=== PATIENT | female | born 1960 | race Caucasian/White ===

== ENCOUNTER 2017-03-04 18:16 | Emergency (ER) | payer MEDICAID ==
[~2017-03-04] VITALS: Ht 152.4 cm; Wt 78.4 kg
[~2017-03-04 18:16] MED LIST: BACTDS PO; CYCL-319 PO; DOCU-144 PO; HYDR-3720 PO
[2017-03-04 18:24] VITALS: Ht 152.4 cm; Wt 78.4 kg
--- NOTE | 2017-03-04 19:54 | ERD ---
ER Documentation Chief Complaint Chief Complaint Right knee pain s/p 3 feet, no KO, headache HPI 56-year-old female presents to emergency department for complaints of bilateral knee pain after falling 3 feet high landing on bilateral knee. Patient's pain on the right knee is more than the left knee. Patient describes pain as throbbing pain, 8/10 scale, as was upon movement accompanied with swelling and bruising. Patient did not take any medications to help with symptoms. Patient started to have a headache after wards. Patient denies any head injury. Patient denies any numbness or tingling. Patient denies any deformity. ROS All systems reviewed and are negative except as per history of present illness. Medications Home Meds Active Scripts Sulfamethoxazole-Trimethoprim* (Bactrim* DS) 800-160 Mg Tab, 1 TAB PO BID for 5 Days, TAB Prov:ANDREW SLOAN DO 06/02/15 Cyclobenzaprine Hcl* (Cyclobenzaprine Hcl*) 10 Mg Tablet, 10 MG PO TID, #10 TAB Prov:HOLLY LUO 03/21/15 Docusate Sodium* (Colace*) 100 Mg Capsule, 100 MG PO BID, #20 CAP Prov:PUJATRACY HARRISONTHIA 03/21/15 Hydrocodone Bit-Acetaminophen* ([place]*) 7.5-325 Tablet, 1 TAB PO Q4H Y for PAIN , #20 TAB Prov:TRACY LUOTHIA 03/21/15 Allergies Allergies: Coded Allergies: No Known Allergy (Unverified , 03/28/15) PMhx/Soc History of Surgery: Yes (HERNIA REPAIR) Anesthesia Reaction: No Hx Neurological Disorder: No Hx Respiratory Disorders: Yes (ASTHMA) Hx Cardiac Disorders: No Hx Psychiatric Problems: No Hx Miscellaneous Medical Probl: No Hx Alcohol Use: Yes (OOC) Hx Substance Use: No Hx Tobacco Use: Yes (>20 YRS AGO) Smoking Status: Former smoker FmHx Family History: No coronary disease, No diabetes, No other Physical Exam Vitals Vital Signs Date Time Temp Pulse Resp B/P Pulse Ox O2 Delivery O2 Flow Rate FiO2 03/04/17 18:24 98.3 94 20 154/84 97 Physical Exam GENERAL: The patient is well developed and appropriate for usual state of health, in no apparent distress. CHEST: Clear to auscultation bilaterally. There are no rales, wheezes or rhonchi. HEART: Regular rate and rhythm. No murmurs, clicks, rubs or gallops. No S3 or S4. ABDOMEN: Soft, nontender and nondistended. Good bowel sounds. No rebound or guarding. No gross peritonitis. No gross organomegaly or masses. No Boo sign or McBurney point tenderness. BACK: No midline or flank tenderness. EXTREMITIES: Bilateral knee noted to be swollen with ecchymosis noted, able to do full range of motion and ambulate without any restriction. Equal pulses bilaterally. There is no peripheral clubbing, cyanosis or edema. No focal swelling or erythema. Full range of motion. Grossly neurovascularly intact. NEURO: Alert and oriented. Cranial nerves 2-12 intact. Motor strength in all 4 extremities with 5/5 strength. Sensation grossly intact. Normal speech and gait. SKIN: There is no apparent rash or petechia. The skin is warm and dry. HEMATOLOGIC AND LYMPHATIC: There is no evidence of excessive bruising or lymphedema. No gross cervical, axillary, or inguinal lymphadenopathy. Results 24 hrs PROCEDURE: XR Knee. CLINICAL INDICATION: Right knee pain TECHNIQUE: 4 views of the bilateral knees are available for review. COMPARISON: None available FINDINGS: Mild narrowing of the medial compartment of the bilateral knee is seen. Minimal narrowing of the lateral compartment of the bilateral knee is seen. There is mild narrowing of the bilateral patellofemoral joints as well. Findings are consistent with osteoarthritic degenerative changes of the bilateral knees. No acute fracture or dislocation is seen. No radiopaque foreign body is identified. Alignment remains anatomic. IMPRESSION: 1. Tricompartmental mild osteoarthritic degenerative changes of the bilateral knees. 2. No acute fracture or dislocation is seen. RPTAT: HH .Wolf Childers MD, MD Date Time Electronically viewed and signed by .Wolf Childers MD, MD on 03/04/2017 21: 19 .N/ CC: EMERITA STYLES [employer] Procedures/MDM Medical Decision Making: Patient's pain is most likely consistent with a contusion or a sprain. There is no suspicion for neurovascular compromise. Patient has intact sensation and circulation of the affected extremity. There is low suspicion for septic arthritis. Patient does not have any fever. Radiology exams of the affected area does not show any fracture or dislocation. Disposition: Home. Patient is given prescription for ibuprofen for pain, tramadol for severe pain. Patient was advised to elevate the affected area and apply ice on affected area. Patient was advised that if symptoms are worse, numbness, tingling, high fever, unable to move joint, worsening symptoms, to return to emergency department immediately. Otherwise, patient is advised to follow up with the primary care doctor in 5-7 days for reevaluation of symptoms. Disclaimer: Inadvertent spelling and grammatical errors are likely due to EHR/ dictation software use and do not reflect on the overall quality of patient care. Also, please note that the electronic time recorded on this note does not necessarily reflect the actual time of the patient encounter. Departure Diagnosis: Primary Impression: Knee contusion Encounter type: initial encounter Laterality: unspecified laterality Qualified Code: S80.00XA - Contusion of knee, unspecified laterality, initial encounter Condition: Stable Patient Instructions: Knee Pain, Uncertain Cause Additional Instructions: Patient is given prescription for ibuprofen for pain. Patient was advised to elevate the affected area and apply ice on affected area. Patient was advised that if symptoms are worse, numbness, tingling, high fever, unable to move joint , worsening symptoms, to return to emergency department immediately. Otherwise, patient is advised to follow up with the primary care doctor in 5-7 days for reevaluation of symptoms. EMERITA STYLES NP Mar 04, 2017 19:54
--- NOTE | 2017-03-04 21:19 | RADRPT ---
PROCEDURE: XR Knee. CLINICAL INDICATION: Right knee pain TECHNIQUE: 4 views of the bilateral knees are available for review. COMPARISON: None available FINDINGS: Mild narrowing of the medial compartment of the bilateral knee is seen. Minimal narrowing of the la teral compartment of the bilateral knee is seen. There is mild narrowing of the bilateral patellofe moral joints as well. Findings are consistent with osteoarthritic degenerative changes of the bilate ral knees. No acute fracture or dislocation is seen. No radiopaque foreign body is identified. Al ignment remains anatomic. IMPRESSION: 1. Tricompartmental mild osteoarthritic degenerative changes of the bilateral knees. 2. No acute fracture or dislocation is seen. RPTAT: HH .Wolf Childers MD, Date Time Electronically viewed and signed by .Wolf Childers MD, on 03/04/2017 21:19 .N/
[2017-03-04] MEDS ORDERED: IBUP-1542 PO (21:58)
[2017-03-04] MEDS ORDERED: TRAM50TA2 PO (21:58)
== END 2017-03-04 22:04 | disposition home or self-care (01) ==
LOC: FTE 18:16
DX: S80.01XA Contusion of right knee, initial encounter (principal); J45.909 Unspecified asthma, uncomplicated; F17.210 Nicotine dependence, cigarettes, uncomplicated; W17.89XA Other fall from one level to another, initial encounter; Y92.9 Unspecified place or not applicable
CPT/HCPCS: 73564; Z7502

== ENCOUNTER 2017-06-11 18:22 | Emergency (ER) | END 2017-06-11 23:53 | disposition home or self-care (01) ==

== ENCOUNTER 2017-06-20 13:05 | Emergency (ER) | END 2017-06-20 17:15 | disposition home or self-care (01) ==